=== PATIENT | male | born 1950 | race Hispanic/Latino ===

== ENCOUNTER → 2020-06-19 | Outpatient (CLI) | payer OTHER ==
[~2020-06-19] MED LIST: ALBUHFA IH; ASPI-1005 PO; BENZ-51 PO; FURO40TA7 PO; GLIM2TAB30 PO; Hydralazine Hcl PO; LEVO250T2 PO; METO50 PO; PANT40TA54 PO; Simvastatin PO; TRAM50TA4 PO
== END | disposition home or self-care (01) ==
LOC: SHCH 14:12
PROVIDERS: ATTEND Internal Medicine Cardiovascular Disease
DX: I87.2 Venous insufficiency (chronic) (peripheral) (principal); R60.9 Edema, unspecified
CPT/HCPCS: 93970